=== PATIENT | male | born 1970 | race Caucasian/White ===

== ENCOUNTER 2018-02-28 06:12 | Day surgery (SDC) | payer OTHER ==
[2018-02-26 08:28] VITALS: BMI 23.7
--- NOTE | 2018-02-27 17:38 | HP ---
HISTORY AND PHYSICAL DATE OF SURGERY: 02/28/2018 Konrad Oconnell is a 47-year-old patient seen with progressive left knee pain. Treatment options were discussed with him. He elected to proceed with left knee arthroscopy. Consent regarding the procedure was obtained. PAST MEDICAL HISTORY: Noncontributory. PAST SURGICAL HISTORY: Herniorrhaphy, nasal surgery. DAILY MEDICATIONS: Ibuprofen. ALLERGIES: None reported. SOCIAL HISTORY: The patient denies current tobacco use. PHYSICAL EVALUATION OF THE LEFT KNEE: Range of motion 0-130 degrees. Mild effusion. Tenderness along the medial joint line. Positive medial Lux's. Crepitus along the patellar and patellofemoral compartment. Painless rotation hip. Ligaments stable. Distal neurovascular intact. Radiographs of the left knee revealed mild osteoarthritic changes. An MRI of the left knee revealed a partial patellar tendon tear, joint effusion, Velazco cyst. IMPRESSION: Internal derangement of the left knee with meniscal tear versus osteochondral tear. PLAN: Left knee arthroscopy with partial meniscectomy versus chondroplasty and debridement. MMODL / IJN: [id number] /
[~2018-02-28 06:12] MED LIST: DEXAMETHASONE SOD PHOSPHATE 10 MG/ML 1 ML VIAL IV ONE; LACTATED RINGERS 1,000 ML IV SCH; LIDOCAINE 1% 20 ML VIAL (10MG/ML) FOR IV START INTRADERMA PRN; MIDAZOLAM 2 MG/2 ML VIAL IV PRN; ONDANSETRON 4 MG/2 ML VIAL IVP ONE; ceFAZolin IN SWFI 2 GM/20 ML SYRINGE IVP ONE; fentaNYL (PF) 50 MCG/ML 2 ML AMP IV PRN
[2018-02-28] MEDS ORDERED: SCOPOLAMINE 1.5MG/72HR PATCH TRANSDERM ONE (07:26)
[2018-02-28] MEDS ORDERED: ePHEDrine SULFATE/0.9% NACL/PF 50 MG/5 ML SYRINGE IV ONE (07:28)
[2018-02-28] MEDS ORDERED: LIDOCAINE 1% INJ 10MG/ML (20 ML MDV) ONE (07:28)
[2018-02-28] MEDS ORDERED: GLYCOPYRROLATE 0.2 MG/ML 2 ML VIAL ONE (07:28)
[2018-02-28] MEDS ORDERED: PROPOFOL 10 MG/ML 20 ML VIAL IV ONE (07:28)
[2018-02-28] MEDS ORDERED: MIDAZOLAM 2 MG/2 ML VIAL ONE (07:28)
[2018-02-28] MEDS ORDERED: fentaNYL (PF) 50 MCG/ML 2 ML AMP ONE (07:28)
[2018-02-28] MEDS ORDERED: SUCCINYLCHOLINE CHLORIDE 100 MG/5 ML SYR IV ONE (07:28)
[2018-02-28] MEDS ORDERED: BUPIVACAIN-EPI 0.25%-1:200,000 30 ML VIAL INTRAARTIC ONE ×2 (07:48)
--- NOTE | 2018-02-28 08:17 | P.OP ---
Date of Procedure: 02/28/18 Preoperative Diagnosis: Internal derangement left knee Postoperative Diagnosis: 1. Tear medial and lateral meniscus left knee 2. 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 Reactive synovitis medial and suprapatellar compartments left knee Procedure(s) Performed: 1. Arthroscopic partial medial and lateral meniscectomy left knee 2. Arthroscopic chondroplasty patella left knee 3. Arthroscopic partial synovectomy medial and suprapatellar compartments left knee Anesthesia: CHONA, local Surgeon: Stef Rao Estimated Blood Loss (ml): 5 Pathology: none sent Condition: stable Disposition: PACU Indications for Procedure: 47-year-old patient seen with progressive left knee pain. After having treatment options discussed, he elected to proceed with arthroscopy. Operative Findings: see description of procedure Description of Procedure: Patient was taken to the operative suite. Patient underwent a general anesthetic by the department of anesthesia. Patient was given preoperative antibiotics. The left lower extremity was placed in a well-padded arthroscopic leg shepherd. The left leg was prepped and draped in the normal sterile orthopedic fashion. A lateral parapatellar and suprapatellar incision was made. Trochars were inserted. Arthroscopy was initiated. Suprapatellar pouch revealed diffuse thick reactive synovitis. The patellofemoral joint appeared to articulate congruently. There was grade 1/2 chondromalacia of the patella with some osteochondral tears present. The scope was guided into the medial gutter. No loose bodies or plica were identified. The scope was then guided into the medial compartment. A medial parapatellar incision was made. Trocar inserted followed by probe. There were radial tears involving anterior horn of the medial meniscus. There was some reactive synovitis along the anterior aspect medial compartment as well. The osteochondral surfaces of the femoral condyle and tibial plateau. Stable. There were no loose bodies. I performed a partial medial meniscectomy getting down to stable tissue. I performed a partial synovectomy decompressing the reactive some-itis anteriorly. The residual meniscus was not probed and found to be stable. There was good decompression of the synovitis. Scope and probe were then guided into the intercondylar notch. Cruciates were identified, probed and found to be stable. The scope and probe were then guided into lateral compartment. There was a small radial tear involving the midbody lateral meniscus. There was no synovitis present. The osteochondral surfaces were stable. I performed a partial lateral meniscectomy down to stable tissue. The residual meniscus was stable. The scope was in guided back into the suprapatellar compartment. I introduced a motorized shaver into the suprapatellar compartment. I performed a chondroplasty of the patella getting down to stable osteochondral tissue. I performed a partial synovectomy decompressing reactive synovitis. The residual osteochondral surface of the patella was stable. There was good decompression of the synovitis. Instruments were now removed from the joint. The joint was infiltrated with .25% Marcaine. Steri-Strips were applied to the portal sites. Sterile dressings were applied. The patient was placed into a MARVIN hose. No tourniquet was utilized. The patient was awakened, transferred to a bed and taken to recovery stable satisfactory condition.
[2018-02-28 08:27] VITALS: TEMP 97.1
[2018-02-28 09:51] VITALS: PULSE 64
[2018-02-28 10:16] VITALS: BP 149/89; RESP 18
== END 2018-02-28 10:16 | disposition home or self-care (01) ==
LOC: OR 06:12
PROVIDERS: ATTEND Orthopaedic Surgery
DX: S83.242A Other tear of medial meniscus, current injury, left knee, initial encounter (principal); S83.282A Other tear of lateral meniscus, current injury, left knee, initial encounter; X58.XXXA Exposure to other specified factors, initial encounter; M22.42 Chondromalacia patellae, left knee; M65.862 Other synovitis and tenosynovitis, left lower leg; K21.9 Gastro-esophageal reflux disease without esophagitis; Z79.1 Long term (current) use of non-steroidal anti-inflammatories (NSAID); Z79.899 Other long term (current) drug therapy
CPT/HCPCS: 29880; J2250; J1100; J2405; J2001; J3010; J0330; J2704; J0690

== ENCOUNTER → 2021-09-22 | Outpatient (CLI) | payer OTHER, BC ==
--- NOTE | 2021-09-23 06:35 | MR ---
EXAMINATION TYPE: MR knee RT wo con DATE OF EXAM: 09/22/2021 COMPARISON: Outside right knee x-ray September 14, 2021 HISTORY: Right Knee Pain locking and swelling for 6 months per patient TECHNIQUE: Multiplanar, multisequence imaging of the right knee is performed without IV contrast. FINDINGS: Suboptimal study with some motion artifact degradation. MEDIAL MENISCUS: Anterior and posterior horns are intact without tear. LATERAL MENISCUS: Anterior and posterior horns are intact without tear. CRUCIATE LIGAMENTS: The anterior and posterior cruciate ligaments are intact and unremarkable. COLLATERAL LIGAMENTS: The medial collateral ligament and lateral collateral ligament complex are inta ct and unremarkable. EXTENSOR MECHANISM: Visualized quadriceps and patellar tendons are intact. EFFUSION: Small to moderate size suprapatellar joint effusion. POPLITEAL CYST: Small to moderate size multiseptated popliteal/cisneros cyst measuring 5.1 cm long axis sagittal image 6. TRICOMPARTMENT SPACES: Mild to moderate tricompartment joint space loss. No significant spurring area s CARTILAGE: Tricompartment articular cartilage fairly well maintained BONE MARROW SIGNAL: Heterogeneous increased T2 signal involving the posterior half of the patellar po le with suggestion of low linear T1 signal sagittal image 14 along the posterior aspect. Findings sug gest incomplete nondisplaced fracture and associated edema. OTHER: No additional significant abnormality is appreciated. IMPRESSION: 1. Suspected nondisplaced stress fracture posterior inferior aspect of the patella with surrounding o sseous edema. 2. Small to moderate-sized suprapatellar joint effusion. 3. Small to moderate size multiseptated popliteal cyst. 4. No meniscal or ligamentous tear is seen.
== END | disposition home or self-care (01) ==
LOC: RADMRIMAIN 13:06
PROVIDERS: ATTEND Orthopaedic Surgery
DX: M71.21 Synovial cyst of popliteal space [Baker], right knee (principal); M25.461 Effusion, right knee